=== PATIENT | female | born 2000 | race African-American/Black ===

== ENCOUNTER 2019-03-17 18:20 | Emergency (ER) | payer BC, MEDICAID ==
[~2019-03-17] VITALS: Ht 160 cm; Wt 57.2 kg
[2019-03-17 18:39] VITALS: BP 106/74
--- NOTE | 2019-03-17 18:39 | NUR ---
ED Nurse Note: Pt walked into ER for c/o headache that has been on and off for the past week. Pt reports episodes of vomiting, nausea, dizziness. She denies any head trauma. Pt notes LMP was 8 months ago, she is on depo shot. 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 Pt aaox4, no respiratory or cardiac distress noted. Will continue to monitor.
[2019-03-17] MEDS ORDERED: Metoclopramide 10mg/2ml Inj IVP ONE (19:00)
[2019-03-17] MEDS ORDERED: DiphenhydrAMINE 50mg/ml Inj IVP ONE (19:00)
[2019-03-17] MEDS ORDERED: Ketorolac 30mg Inj IV ONE (19:00)
--- NOTE | 2019-03-17 19:04 | Emergency Room Report ---
History of Present Illness General Chief Complaint: Headache Source: Patient Present Illness HPI Disclaimer: Please note that this report is being documented using DRAGON technology. This can lead to erroneous entry secondary to incorrect interpretation by the dictating instrument. HPI: 18-year-old female presents with URI symptoms and headache. History of worsening chronic headaches but no formal diagnosis of migraine. She notes 5 to 7 days of nasal congestion, right-sided ear pain, sore throat, subjective fevers, chills, nausea. She has had a worsening headache over the past 5 days to now is unbearable. She notes photosensitivity and odor sensitivity. Denies any vertiginous symptoms, numbness, tingling, weakness. Denies any neck or back pain. She has been taking 600 mg ibuprofen without significant improvement. She had one episode of emesis today in the afternoon that was nonbloody and nonbilious. Denies diarrhea. Denies dysuria or hematuria. States it is similar to her prior headaches though been getting worse and lasting longer than usual. PMH: Chronic headaches PSH: Denies Allergies: Denies Social Hx: Denies Allergies: Coded Allergies: No Known Allergies (Unverified , 03/17/19) Patient History Now: No Review of Systems All Other Systems: negative except mentioned in HPI Physical Exam Vital Signs Date Time Temp Pulse Resp B/P (MAP) Pulse Ox O2 Delivery O2 Flow Rate FiO2 03/17/19 18:28 97.3 87 20 106/74 (85) 100 Room Air General: Awake and alert, no acute distress HEENT: NC/AT. EOMI. PERRLA. Bilateral maxillary sinus tenderness. Erythema in the pharynx with a midline uvula, no exudate, tonsils are 1+. Right tympanic membrane is hyperemic but nonbulging, no effusions, no rupture. Left tympanic membrane is obscured by cerumen impaction. Neck: Supple, trachea midline, mild cervical lymphadenopathy Cardiovascular: RRR. S1 and S2 normal. No murmur appreciated Resp: Normal work of breathing. No cough, wheezing or crackles appreciated Abdomen: Abdomen is soft, nondistended. Nontender Skin: Intact. No abrasions, laceration or rash over the exposed skin MSK: Normal tone and bulk. Moving all extremities. No obvious deformity. Neuro: Awake and alert. Mentating appropriately. Medical Decision Making Diagnostic Impression: Primary Impression: Upper respiratory infection Additional Impression: Headache ER Course 18-year-old female presents for evaluation of 5 days headache in the setting of an upper respiratory infection. Likely, this is a viral syndrome which triggered one of her typical headaches which may be migraine but also possible cluster headache, sinus headache, tension headache. She has no meningism signs or signs of systemic infection. Do not believe she requires emergent imaging or labs at this time. Will treat with a migraine cocktail including IV fluids, Reglan, Benadryl, Reglan and Toradol. Her exam is nonfocal and her headache is typical character for her. Will reassess frequently and advance work-up as needed Reevaluation Time: 20:04 Last Vital Signs Date Time Temp Pulse Resp B/P (MAP) Pulse Ox O2 Delivery O2 Flow Rate FiO2 03/17/19 18:39 97.3 87 20 106/74 100 Room Air Status: improved Reevaluation Impression Patient's headache is now resolved after receiving a migraine cocktail. She has no complaints at this time aside from nasal congestion. Likely this is an upper respiratory illness which triggered a migraine headache, cluster headache or generalized headache. I encouraged her to follow-up with a neurologist for further evaluation of her worsening headaches. Discussed symptomatic control for URI symptoms and for generalized headaches. Discussed reasons to return to the emergency department and need to follow-up with her PMD. She understands and agrees with this treatment plan will be discharged home. Disposition: HOME, SELF-CARE Condition: Improved Ehsan Arango MD Mar 17, 2019 19:04
--- NOTE | 2019-03-17 19:05 | NUR ---
HAND-OFF: Report given to Gauri Morales and endorsed care.
[2019-03-17 19:06] VITALS: BP 110/69
--- NOTE | 2019-03-17 19:06 | NUR ---
ED Nurse Note: Received report from Yanelis MERCEDES. Pt alert and oriented. VSS.
[2019-03-17 20:09] VITALS: BP 115/70
--- NOTE | 2019-03-17 20:09 | NUR ---
ED Nurse Note: Pt cleared by ERMD for discharge. DC instructions was given and explained to pt and verbalized understanding of teachings. All medical deviecs such as ID band and IV line removed. Pt is AAO x4, ambulatory and left with all personal belongings. Accompanied by parent.
== END 2019-03-17 20:09 | disposition home or self-care (01) ==
LOC: EMR 19:58
DX: J06.9 Acute upper respiratory infection, unspecified (principal); R51 Headache
CPT/HCPCS: 96361; 96374; 96375; 99284; J1200; J1885; J2765; J7030